=== PATIENT | male | born 1995 | race African-American/Black ===

== ENCOUNTER 2023-01-31 10:54 | Emergency (ER) | payer SELFPAY ==
[~2023-01-31] VITALS: Ht 182.9 cm; Wt 79.4 kg
[2023-01-31] MEDS ORDERED: ACETAMINOPHEN 325 MG TAB PO ONE (11:15)
[2023-01-31] MEDS ORDERED: METH4PAK PO (13:06)
[2023-01-31] MEDS ORDERED: AZIT1POW PO (13:06)
[2023-01-31] MEDS ORDERED: IBUPROFEN 600 MG TAB PO ONE (15:45)
[2023-01-31 16:26] VITALS: BP 114/62
== END 2023-01-31 16:28 | disposition home or self-care (01) ==
LOC: ER 10:54 → EDBD 10:54 → ER 16:28
DX: J20.9 Acute bronchitis, unspecified (principal); J02.9 Acute pharyngitis, unspecified; Z20.822 Contact with and (suspected) exposure to COVID-19
CPT/HCPCS: 36415; 71046; 87426; 87804